=== PATIENT | male | born 1955 ===

== ENCOUNTER 2019-02-05 05:09 | Day surgery (SDC) | payer OTHER ==
[2019-02-05] VITALS (9 sets, daily range): BP systolic 108–149; BP diastolic 65–88
[~2019-02-05] VITALS: Ht 167.6 cm; Wt 60.3 kg
[2019-02-05] MEDS ORDERED: LISINOPRIL-HCT1 EACH ORAL (05:58)
[2019-02-05] MEDS ORDERED: ceFAZolin 1gm IVPB IVPB ONE ×2 (06:00)
[2019-02-05] MEDS ORDERED: celeBREX 200mg Cap **SURGERY PATIENTS ONLY ORAL ONE (06:00)
[2019-02-05] MEDS ORDERED: oxyCONTIN 20mg tab ORAL ONE (06:00)
[2019-02-05] MEDS ORDERED: Ketorolac 30mg Inj ONE ×2 (06:21→12:16)
[2019-02-05] MEDS ORDERED: Duramorph PF 5mg/10ml amp ONE (06:21)
[2019-02-05] MEDS ORDERED: Kenalog-40 1ml Vial ONE (06:21)
[2019-02-05] MEDS ORDERED: Bupivacaine 0.25% Inj 30ml INJ ONE (06:21)
[2019-02-05] MEDS ORDERED: Lidocaine 1% 10mg/ml/Epi 0.005mg/ml 30ml vial INJ ONE (06:21)
[2019-02-05] MEDS ORDERED: EPINEPHrine 1mg/1ml Amp ONE (06:21)
--- NOTE | 2019-02-05 07:31 | Pre-Procedure Note/Attestation ---
Pre-Procedure Note/Attestation Complete Prior to Procedure Planned Procedure: left Procedure Narrative: knee diagnostic arthroscopy, possible menisectomy, possible acl reconstruction Indications for Procedure Pre-Operative Diagnosis: left knee internal derangment Attestation I attest that I discussed the nature of the procedure; its benefits; risks and complications; and alternatives (and the risks and benefits of such alternatives ), prior to the procedure, with the patient (or the patient's legal sales representative printing paper). I attest that, if there was a reasonable possibility of needing a blood transfusion, the patient (or the patient's legal sales representative printing paper) was given the [facility] standardized written summary, pursuant to the [employer]innie [employer] Blood Safety Act ([place] Health and Safety Code # 1645, as amended). I attest that I re-evaluated the patient just prior to the surgery and that there has been no change in the patient's H&P, except as documented below: Jose Brunner MD Feb 05, 2019 07:31
--- NOTE | 2019-02-05 07:32 | Operative Note - PDOC ---
Operative Note Operative Note Pre-op Diagnosis: left knee internal derangment Procedure: see op report Post-op Diagnosis: same as pre-op plus Operative Findings: consistent w/pre-op dx studies Anesthesia: regional Specimen: none Complications: none Condition: stable Estimated Blood Loss: none Implant(s) used?: No Jose Brunner MD Feb 05, 2019 07:32
[2019-02-05] MEDS ORDERED: Acetaminophen (Non formulary) 100 ML IV ONE (08:30)
[2019-02-05] MEDS ORDERED: NS Irrig 4000ml IRRIG ONE (09:59)
--- NOTE | 2019-02-05 10:28 | Anethesia Preoperative Eval ---
Anesthesia Pre-op PMH/ROS General Date of Evaluation: Feb 05, 2019 Anesthesiologist: Montez ASA Score: ASA 2 Mallampati Score Class I : Soft palate, uvula, fauces, pillars visible Class II: Soft palate, uvula, fauces visible Class III: Soft palate, base of uvula visible Class IV: Only hard plate visible Mallampati Classification: Class II Surgeon: Kannan Diagnosis: Left knee pain Surgical Procedure: Left knee diagnostic arthroscopy with ACL repair Anesthesia History: none Family History: no anesthesia problems Allergies: Coded Allergies: No Known Allergies (Unverified , 02/04/19) Medications: see eMAR Patient NPO?: Yes NPO Date: Feb 04, 2019 NPO Time: 22:00 Past Medical History Cardiovascular: Reports: HTN; Denies: CAD, [place], valve dz, arrhythmia, other Pulmonary: Denies: asthma, COPD, CATY, other Gastrointestinal/Genitourinary: Reports: other - BPH; Denies: GERD, CRI, ESRD Neurologic/Psychiatric: Reports: depression/anxiety; Denies: dementia, CVA, TIA, other Endocrine: Denies: DM, hypothyroidism, steroids, other HEENT: Reports: other - patient with comp[laint of seeing black spots in bilateral visual pteit; Denies: cataract (L), cataract (R), glaucoma, HOOPA (L), HOOPA (R) Hematology/Immune: Denies: anemia, DVT, bleeding disorder, other Musculoskeletal/Integumentary: Reports: other - LBP; Denies: OA, RA, DJD, DDD, edema PSxH Narrative: ex-lap Anesthesia Pre-op Phys. Exam Physician Exam Last Vital Signs Date Time Temp Pulse Resp B/P (MAP) Pulse Ox O2 Delivery O2 Flow Rate FiO2 02/05/19 06:05 97.6 73 20 132/77 98 Room Air Constitutional: NAD Cardiovascular: RRR Respiratory: CTA Airway Exam Mallampati Score: Class II MO: full ROM: full Anesthesia Pre-op A/P Labs see chart Studies Pre-op Studies: EKG - sr Risk Assessment & Plan Assessment: ASA II Plan: GA with adductor nerve block Status Change Before Surgery: No Pre-Antibiotics Drug: Ancef 1g Given Within 1 Hr of Incision: Yes Lucrecia Elena MD Feb 05, 2019 10:28
[2019-02-05] MEDS ORDERED: Propofol 200mg/20ml IV ONE (12:13)
[2019-02-05] MEDS ORDERED: Lidocaine 1% MPF 10mg/ml 5ml ONE (12:13)
[2019-02-05] MEDS ORDERED: fentaNYL 100 mcg/2 mL IV ONE (12:14)
[2019-02-05] MEDS ORDERED: Midazolam 2mg/2ml Inj ONE (12:14)
[2019-02-05] MEDS ORDERED: Dexamethasone 4mg/ml vial ONE (12:16)
[2019-02-05] MEDS ORDERED: LR 1000ml ONE (12:30)
[2019-02-05] MEDS ORDERED: Duramorph PF 5mg/10ml amp EPIDUR ONE (13:30)
--- NOTE | 2019-02-05 13:49 | Immediate Post-Op Evaluation ---
Immediate Post-Op Evalulation Immediate Post-Op Evalulation Procedure: Left knee arthroscopy Date of Evaluation: Feb 05, 2019 Time of Evaluation: 13:48 IV Fluids: 1L Blood Products: 0 Estimated Blood Loss: min Urinary Output: 0 Blood Pressure Systolic: 117 Blood Pressure Diastolic: 70 Pulse Rate: 64 Respiratory Rate: 16 O2 Sat by Pulse Oximetry: 100 Temperature (Fahrenheit): 98 Pain Score (1-10): 0 Nausea: No Vomiting: No Complications 0 Patient Status: awake, reacts, patent, none Hydration Status: adequate Drug: Ancef Given Within 1 Hr of Incision: Yes Lucrecia Elena MD Feb 05, 2019 13:49
--- NOTE | 2019-02-05 13:52 | 48 Hour Post Anesthesia Eval ---
Post Anesthesia Evaluation Procedure: Left knee arthroscopy Date of Evaluation: Feb 05, 2019 Airway: patent Nausea: No Vomiting: No Pain Intensity: 0 Hydration Status: adequate Cardiopulmonary Status: at baseline Mental Status/LOC: patient returned to baseline Post-Anesthesia Complications: 0 Follow-up care needed: ready to discharge Lucrecia Elena MD Feb 05, 2019 13:51
[2019-02-05] MEDS ORDERED: D5 1/2NS 1,000 ML IV SCH (15:00)
[2019-02-05] MEDS ORDERED: HYDROcodone/Acetamin 5/325 tab ORAL PRN (15:00)
[2019-02-05] MEDS ORDERED: Tylenol #3 tab (300mg/30mg) ORAL PRN (15:00)
--- NOTE | 2019-02-05 15:00 | NUR ---
Left toes with good capillary filling and sensation. Continue ice pack to left knee.
--- NOTE | 2019-02-05 16:30 | Operative Note - Dictated ---
DATE OF OPERATION: 02/05/2019 PREOPERATIVE DIAGNOSES: 1. Left knee ACL tear. 2. Medial and lateral femoral condyle micro contusions. 3. Chondral damage patellofemoral compartment. POSTOPERATIVE DIAGNOSES: 1. Left knee ACL sprain. 2. Left knee patellofemoral chondral damage. 3. Hypertrophic synovial tissue medial and lateral patellofemoral compartment PROCEDURE: 1. Left knee arthroscopy, medial, lateral, patellofemoral synovectomy, and excision of fat pad. 2. Gentle chondroplasty patellofemoral compartment. SURGEON: Jose Brunner M.D. ANESTHESIA: MAC with local. INDICATION FOR PROCEDURE: The patient is a pleasant gentleman, who sustained injury to the left knee. An MRI, which showed a tear of the ACL with concomitant microfractures and bone bruising of both medial and lateral condyle. There was some evidence of patellofemoral chondral damage as well. The patient failed conservative treatment, elected to undergo diagnostic arthroscopy, possible ACL reconstruction, synovectomy, meniscectomy based on intraoperative findings. Risks, limitations, expectations, and complications of the procedure discussed in detail. All questions addressed. DESCRIPTION OF PROCEDURE: After informed consent was obtained, the patient was placed on the operating room. The patient was placed under general anesthesia. Left leg was prepped and draped in a sterile manner. Time-out was performed. Examination under anesthesia showed a slight laxity with anterior drawer testing, unequivocal reverse pivot shift. Inferolateral stab incision was then made. Trocar was introduced into the knee joint. There is hypertrophic synovial tissue in patellofemoral compartment. There was a medial plica making visualization difficult. Medial gutter was entered, free of any loose bodies. Medial compartment was entered, again it was difficult to visualize given hypertrophic fat pad and synovial tissue. At this point, the medial working portal was established and synovectomy, excision of fat pad in the medial compartment, intercondylar notch, lateral compartment was performed. Once that was completed, the medial compartment was entered. The meniscus was probed, noted to be intact. There were no chondral flaps of the medial femoral condyle. The area of concern was the microtrabecular fracture. The ACL was probed along its femoral insertion, which was intact along the distal tibial insertion. There was a longitudinal split along the ACL. Lateral compartment was entered, free from meniscal chondral damage. At this point, the camera was placed in the patellofemoral compartment. Excision of the medial plica as well as fat pad was completed. Once that was done, gentle chondroplasty of the patellofemoral compartment was performed. Once that was completed, the instruments were removed. Portal sites were closed with 3-0 Monocryl sutures. Steri-Strips and a sterile dressing were applied. ESTIMATED BLOOD LOSS: None. COMPLICATIONS: None. SPECIMENS: None. Jose Brunner M.D. DR: MAGDALENA JOB#: [id number] CC:
== END 2019-02-05 15:00 | disposition home or self-care (01) ==
LOC: SUR 05:09
DX: S83.512A Sprain of anterior cruciate ligament of left knee, initial encounter (principal); M67.262 Synovial hypertrophy, not elsewhere classified, left lower leg; I10 Essential (primary) hypertension; F32.9 Major depressive disorder, single episode, unspecified; F41.9 Anxiety disorder, unspecified; X58.XXXA Exposure to other specified factors, initial encounter; Y92.9 Unspecified place or not applicable
CPT/HCPCS: 29876; J0690; J1100; J1885; J2250; J2405; J2704; J3010; J3301; J3490; 94003; 94150